=== PATIENT | male | born 1965 | race Caucasian/White ===

== ENCOUNTER 2020-05-16 19:41 | Emergency (ER) | payer BC ==
[~2020-05-16] VITALS: Ht 172.7 cm; Wt 99.8 kg
[2020-05-16] MEDS ORDERED: MEDROLDOSEPACK PO (20:24)
[2020-05-16] MEDS ORDERED: HYDROCODON-ACE1 EAC7 PO (20:24)
[2020-05-16] MEDS ORDERED: TORADOL 10 MG T10 MG PO (20:24)
[2020-05-16 20:47] VITALS: BP 171/86
== END 2020-05-16 20:50 | disposition home or self-care (01) ==
LOC: M.ERS 19:41
DX: S46.912A Strain of unspecified muscle, fascia and tendon at shoulder and upper arm level, left arm, initial encounter (principal); Z98.890 Other specified postprocedural states; Z88.0 Allergy status to penicillin; Z88.8 Allergy status to other drugs, medicaments and biological substances; X50.0XXA Overexertion from strenuous movement or load, initial encounter; Y93.89 Activity, other specified; Y92.89 Other specified places as the place of occurrence of the external cause; Y99.9 Unspecified external cause status

== ENCOUNTER 2021-07-05 21:30 | Emergency (ER) | payer BC ==
[~2021-07-05] VITALS: Ht 172.7 cm; Wt 102.1 kg
[~2021-07-05 21:30] MED LIST: HYDROCODON-ACE1 EAC7 PO; MEDROLDOSEPACK PO; TORADOL 10 MG T10 MG PO
[2021-07-05] MEDS ORDERED: VAZALORE81 MG PO (21:43)
[2021-07-05 22:56] VITALS: BP 138/88
== END 2021-07-05 22:56 | disposition home or self-care (01) ==
LOC: M.ERS 21:30
DX: R06.02 Shortness of breath (principal); R11.0 Nausea; R42 Dizziness and giddiness; Z57.4 Occupational exposure to toxic agents in agriculture; Z88.6 Allergy status to analgesic agent; Z88.0 Allergy status to penicillin; Z98.890 Other specified postprocedural states